=== PATIENT | female | born 1995 | race Caucasian/White ===

== ENCOUNTER 2022-10-28 08:04 | Outpatient (CLI) | payer OTHER, SELFPAY | END 2022-10-28 08:05 | disposition home or self-care (01) | LOC: NFLDREF 13:49 | PROVIDERS: PCP Dermatology; Referring Provider Dermatology; Visit Provider Family Medicine | DX: Z00.00 Encounter for general adult medical examination without abnormal findings (principal); E78.5 Hyperlipidemia, unspecified; E10.9 Type 1 diabetes mellitus without complications; E73.9 Lactose intolerance, unspecified; F41.9 Anxiety disorder, unspecified | CPT/HCPCS: 80053; 80061; 84439; 84443; 84681 ==

== ENCOUNTER 2023-01-17 10:25 | Emergency (ER) | payer OTHER, SELFPAY ==
[2023-01-17] VITALS (8 sets, daily range): BP systolic 99–107; BP diastolic 55–76; PULSE 73–96; RESP 16; TEMP 36; O2SAT 94–100; BMI 21.6
[2023-01-17 11:31] LABS: Appearance Urine Clear (Clear); Bilirubin Urine Negative (Negative); Blood Urine Negative (Negative); Color Urine Yellow (Yellow); Glucose Urine Negative (Negative); Ketones Urine Negative (Negative); Leukocyte Esterase Urine Trace (Negative); Nitrite Urine Negative (Negative); Protein Urine Negative (Negative); Specific Gravity Urine 1.015 (1.000-1.030); Urobilinogen Urine 0.2 (0.2-1.0); pH Urine 6.5 (5.0-8.5)
--- NOTE | 2023-01-17 11:42 | ED.GENADULT ---
HPI - General Adult General Time Seen by Provider: 11:42 Date Seen: 01/17/23 Chief complaint: Flank Pain Stated complaint: maybe kidney stones Time Seen by Provider: 01/17/23 11:32 Source: patient, family, RN notes reviewed and old records reviewed Mode of arrival: ambulatory Limitations: no limitations History of Present Illness HPI narrative: 27-year-old female who comes with right flank and right lower quadrant pain. This started 4 days ago in the low back and now has come around to the front. Pain is constant in the low back, waxes and wanes in the right lower quadrant. Nausea today and general male as and that is what prompted her to come in today. Review of records shows she was seen in urgent care yesterday with CBC and urinalysis done, urinalysis without hematuria or indication of infection and CBC with normal white blood cell count. Denies possibility of . Patient is a type 1 diabetic and says her sugars have been running a little higher since she started feeling poorly. Related Data Home Medications Medication Instructions Recorded Confirmed multivitamin with minerals-folic tab PO 11/01/22 01/16/23 acid 200 mcg chewable tablet (Women's Multivitamin Gummies) Previous Rx's Medication Instructions Recorded Diabetic Test Strips #100 ea 11/01/22 alcohol swabs See Rx Instructions topical 11/01/22 .COMPLEX #200 ea miscellaneous medical supply #1 ea 11/01/22 insulin glargine 100 unit/mL (3 25 unit (0.25 mL) subcut QDAY #15 11/07/22 mL) subcutaneous pen (Lantus mL Solostar U-100 Insulin) lancets 33 gauge #100 ea 11/22/22 pen needle, diabetic 32 gauge x #100 ea 11/22/22 dicyclomine 10 mg capsule 10 mg PO QID PRN abdominal pain 01/17/23 #14 caps ondansetron 4 mg disintegrating 4 mg PO Q6H PRN nausea and 01/17/23 tablet vomiting #20 tabs polyethylene glycol 3350 17 17 g PO DAILY #119 grams 01/17/23 gram/dose oral powder (Miralax) Allergies Allergy/AdvReac Type Severity Reaction Status Date / Time dextromethorphan Allergy Mild Unknown Verified 01/16/23 12:09 [facility] Medical History (Updated 01/17/23 @ 14:30 by Kirk Torres MD) Dyslipidemia ?E78.5 - Hyperlipidemia, unspecified (ICD-10) Migraine with aura ?G43.109 - Migraine with aura, not intractable, without status migrainosus (ICD-10) Surgical History (Updated 11/01/22 @ 12:06 by Madison Lozada MD) No pertinent past surgical history ?Z78.9 - Other specified health status (ICD-10) Family History (Updated 11/07/22 @ 13:32 by Madison Lozada MD) Paternal Grandmother Breast cancer, Onset Age: 60 Lung cancer DM type 1 (diabetes mellitus, type 1) Maternal Grandfather Esophageal cancer Grandmother Diabetes Aunt Diabetes DM type 1 (diabetes mellitus, type 1) Other Prostate cancer Uterine cancer Social History (Updated 11/01/22 @ 12:59 by Madison Lozada MD) 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: , 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, 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 Alcohol ingestion 1-4 drinks/week Does not use illicit drugs Exercises 4 times cardio and weights Smoking Status: Never smoker Second hand tobacco smoke exposure: No How often do you have a drink containing alcohol: never How often do you have six or more drinks on one occasion: Never AUDIT-C Alcohol total score: 0 Non-prescribed substance use: denies use Little interest or pleasure in doing things: not at all Feeling down, depressed, or hopeless: several days service: No Exam Narrative: Exam Narrative: General: Well-developed and well-nourished, no acute distress Head: Atraumatic and normocephalic Eyes: Pupils are equal reactive, extraocular motions intact, conjunctiva clear ENT: External nose and ears are normal, posterior pharynx without erythema or exudate Neck: No midline cervical tenderness, full spontaneous range of motion the neck, trachea midline, no adenopathy Heart: Regular rate and rhythm no murmurs or thrills Lungs: Clear to auscultation bilaterally without wheezes or crackles Abdomen: Soft, mild right CVA tenderness and right lower quadrant tender Musculoskeletal: No tenderness, deformity, or edema Neurologic: Awake, alert, and oriented x3, no gross focal neurologic deficits, cranial nerves intact as tested Psych: Mood and affect are appropriate Skin: No rashes Const: Vital Signs, click to edit/add: Vital Signs - 24 hr 06/16/23 10:45 01/17/23 13:13 01/17/23 13:13 Temperature 96.8 F L Pulse Rate 73 Pulse Rate [Pulse Oximeter] 96 73 Respiratory Rate 16 16 Blood Pressure Blood Pressure [Ri ght Upper Arm] 101/67 107/76 Pulse Oximetry 100 100 100 Oxygen Delivery Me thod Room Air Room Air 01/17/23 13:30 01/17/23 13:31 01/17/23 13:31 Temperature Pulse Rate 81 81 81 Pulse Rate [Pulse Oximeter] Respiratory Rate Blood Pressure 106/60 106/60 Blood Pressure [Ri ght Upper Arm] Pulse Oximetry 97 99 99 Oxygen Delivery Me thod 01/17/23 14:00 01/17/23 14:01 01/17/23 14:30 Temperature Pulse Rate 85 85 78 Pulse Rate [Pulse Oximeter] Respiratory Rate Blood Pressure 107/62 Blood Pressure [Ri ght Upper Arm] Pulse Oximetry 94 99 100 Oxygen Delivery Me thod 01/17/23 14:31 Temperature Pulse Rate 84 Pulse Rate [Pulse Oximeter] Respiratory Rate Blood Pressure 99/55 L Blood Pressure [Ri ght Upper Arm] Pulse Oximetry 98 Oxygen Delivery Me thod Course Course Hospital Course: Patient seen examined, prior records are reviewed. Patient presents today with right flank pain right lower quadrant pain going on for about the last 5 days. On exam here, right CVA tenderness and right lower quadrant tenderness. Symptoms could be from kidney stone, also consider acute appendicitis or ovarian pathology, mesenteric adenitis also possible. Labs, CT scan, fluids, Toradol, and Zofran are ordered. Reevaluation(s) Time of Reevaluation #1: 14:06 Reevaluation #1: Labs independently interpreted by me demonstrate normal CBC, reassuring basic panel, urinalysis not consistent with infection. CT scan independently interpreted by me demonstrates large volume of stool and very full bladder but no acute findings otherwise, no acute appendicitis, no ovarian cyst noted, no nephrolithiasis or ureterolithiasis. Time of Reevaluation #2: 14:26 Reevaluation #2: Reviewed radiology report of CT scan which shows moderate stool and some enteritis changes. Patient is stable for discharge with medicine for nausea and pain, also was started on MiraLax and a stool softener. Vital Signs Vital signs: Initial Vital Signs Temperature 96.8 F L 01/17/23 10:45 Temperature Source Temporal Artery Scan 01/17/23 10:45 Pulse Rate 96 01/17/23 10:45 Pulse Rhythm Regular 01/17/23 10:45 Respiratory Rate 16 01/17/23 10:45 Blood Pressure 101/67 01/17/23 10:45 Blood Pressure Mean 78 01/17/23 10:45 Pulse Oximetry 100 01/17/23 10:45 Oxygen Delivery Method Room Air 01/17/23 10:45 Vital Signs Temperature 96.8 F L 01/17/23 10:45 Pulse Rate 96 01/17/23 10:45 Respiratory Rate 16 01/17/23 10:45 Blood Pressure 101/67 01/17/23 10:45 Pulse Oximetry 100 01/17/23 10:45 Oxygen Delivery Method Room Air 01/17/23 10:45 Temperature 96.8 F L 01/17/23 10:45 Pulse Rate 84 01/17/23 14:31 Respiratory Rate 16 01/17/23 13:13 Blood Pressure 99/55 L 01/17/23 14:31 Pulse Oximetry 98 01/17/23 14:31 Oxygen Delivery Method Room Air 01/17/23 13:13 Medical Decision Making Lab Data Labs: Lab Results 01/17/23 01/17/23 01/17/23 Range/Units 11:20 12:13 12:20 WBC 9.48 (4.50-11.00) K/uL RBC 4.31 (4.00-5.20) m/uL Hgb 13.0 (12.0-16.0) gm/dL Hct 39.5 (33.0-51.0) % MCV 92 (80-100) fL MCH 30 (26-34) pg MCHC 33 (32-36) gm/dL RDW Coeff of Ortega 11.9 (11.5-15.5) % Plt Count 272 (140-440) K/uL Neut % (Auto) 53.0 (42.0-72.0) % Lymph % (Auto) 15.7 L (20-44) % [place] % (Auto) 4.9 (0.0-11.0) % Eos % (Auto) 26.1 H (0.0-7.0) % Baso % (Auto) 0.2 (0.0-3.0) % Neut # (Auto) 5.03 (1.7-7.0) K/uL Lymph # (Auto) 1.50 (0.90-2.90) K/uL [place] # (Auto) 0.50 (0.00-0.90) K/UL Eos # (Auto) 2.50 H (0.00-0.50) K/uL Baso # (Auto) 0.02 (0.00-0.30) K/uL Sodium 133 L (135-149) mmol/L Potassium 4.3 (3.6-5.1) mmol/L Chloride 103 (96-114) mmol/L Carbon Dioxide 26 (20-32) mmol/L BUN 12 (5-24) mg/dL Creatinine 0.6 (0.5-1.5) mg/dL Estimated Creat Clear 136.96 Estimated GFR 126 ml/min Glucose 182 H (60-115) mg/dL Calcium 9.0 (8.4-10.6) mg/dL Urine Color Yellow (Yellow) Urine Appearance Clear (Clear) Urine pH 6.5 (5.0-8.5) Ur Specific [place] 1.015 (1.000-1.030) Urine Protein Negative (Negative) Urine Glucose (UA) Negative (Negative) Urine Ketones Negative (Negative) Urine Blood Negative (Negative) Urine Nitrite Negative (Negative) Urine Bilirubin Negative (Negative) Urine Urobilinogen 0.2 (0.2-1.0) Ur Leukocyte Esterase Trace A (Negative) Urine RBC 0-2 (0-2) Urine WBC 0-2 (0-5) Ur Squamous Epith Cells Few (None-Few) Urine Bacteria Few A (None) Urine HCG, Qual Negative (Negative) Lab Acknowledgement Test Added Discharge Plan Discharge Clinical Impression: DM type 1 (diabetes mellitus, type 1), Enteritis Patient Disposition: Home w/ Parent or Adult Condition: Stable Instructions: Enteritis (ED) Additional Instructions: Liquid diet for 24 hours, then diet as tolerated.. Take MiraLax and stool softener as prescribed. Activity Level: No Restrictions Discharge Diet: Regular Prescriptions: New polyethylene glycol 3350 [Miralax] 17 gram/dose powder 17 g PO DAILY Qty: 119 0RF dicyclomine 10 mg capsule 10 mg PO QID PRN (Reason: abdominal pain) Qty: 14 0RF ondansetron 4 mg tablet,disintegrating 4 mg PO Q6H PRN (Reason: nausea and vomiting) Qty: 20 0RF No Action Women's Multivitamin Gummies 200 mcg tablet,chewable PO insulin glargine [Lantus Solostar U-100 Insulin] 100 unit/mL (3 mL) insulin pen 25 unit subcut QDAY Qty: 15 3RF (DME) miscellaneous medical supply Misc See Rx Instructions .Route Qty: 1 0RF Rx Instructions: As directed alcohol swabs Pads, Medicated See Rx Instructions topical .COMPLEX Qty: 200 11RF Rx Instructions: For topical use prior to injections. (DME) Diabetic Test Strips Misc See Rx Instructions .Route Qty: 100 11RF Rx Instructions: four times a day (DME) pen needle, diabetic 32 gauge x 5/32 needle See Rx Instructions .Route Qty: 100 10RF Rx Instructions: As directed (DME) lancets 33 gauge misc See Rx Instructions .Route Qty: 100 0RF Rx Instructions: As directed Follow Up/Referrals: Carin Lopez MD, FAAD [Primary Care Provider] - Stand Alone Forms: [facility] Info Inst[facility]
--- NOTE | 2023-01-17 11:44 | CRLHL7_ITS ---
For Patients: As a result of the Century Cures Act, medical imaging exams and procedure reports are released immediately into your electronic medical record. You may view this report before your referring provider. If you have questions, please contact your health care provider. Indication: Right flank and right lower quadrant pain Technique: Volumetric multidetector CT images of the abdomen and pelvis were obtained after the administration of intravenous contrast. 68 cc Isovue 370 low osmolar intravenous contrast Comparison: None available. Findings: The lung bases are clear. The liver is normal in attenuation without intrahepatic biliary ductal dilatation. The portal vein is patent. The gallbladder is unremarkable without evidence of radiopaque calculus. There is no significant common biliary ductal dilatation or abrupt cut off. The spleen is normal in enhancement and size. There is mild thickening of the gastric antrum and gastric rugal folds. The pancreas is normal in enhancement without significant atrophy. The adrenal glands are unremarkable. The kidneys demonstrate preserved corticomedullary differentiation without evidence of obstructive uropathy. There is moderate to severe stool seen throughout the colon with minimal fluid-filled central small bowel which may represent mild enteritis change. The appendix is unremarkable. There is no significant mesenteric, retroperitoneal, or pelvic sidewall lymph nodes. The aorta is nonaneurysmal. There is no significant atherosclerotic disease appreciated. The solid pelvic viscera are grossly unremarkable. There is no free fluid or free air. The anterior abdominal wall is intact without significant hernias. The lumbar vertebral body heights are grossly maintained with mild straightening of the normal lumbar lordosis. There is no significant spondylolisthesis or displaced fracture. Impression: Normal appendix. No evidence of distal obstructive radiopaque calculus. Moderate to severe stool seen throughout the colon with nonspecific fluid seen within loops of central small bowel which may represent enteritis changes. Please note that all CT scans at this facility use dose modulation, iterative reconstruction, and/or weight-based dosing when appropriate to reduce radiation dose to as low as reasonably achievable. Dictated by Arcenio Chacko MD @ 01/17/2023 2:20:38 PM (Electronically Signed)
[2023-01-17 11:50] LABS: Bacteria Urine Few; RBC Urine 0-2 (0-2); Squamous Epithelial Cell Urine Few (None-Few); WBC Urine 0-2 (0-5)
[2023-01-17] MEDS: KETOROLAC 15 MG/ML inj IVP (12:24)
[2023-01-17] MEDS: 0.9 % SODIUM CHLORIDE 1000 ml 1,000 ML IV (12:25)
[2023-01-17] MEDS: ONDANSETRON 2 MG/ML inj 4 MG IVP (12:25)
[2023-01-17 12:32] LABS: Ur HCG Qualitative* Negative (Negative)
[2023-01-17 12:54] LABS: Basophils Absolute Auto 0.02 K/uL (0.00-0.30); Basophils Percent Auto 0.2 % (0.0-3.0); Eosinophils Percent Auto 26.1 % (0.0-7.0); Hematocrit 39.5 % (33.0-51.0); Immature Granulocytes Abs Auto 0.01 K/uL (0.00-0.30); Immature Granulocytes Pct Auto 0.1 %; Lymphocytes Percent Auto 15.7 % (20-44); Mean Corpuscular HGB Conc 33 gm/dL (32-36); Mean Corpuscular Hemoglobin 30 pg (26-34); Mean Corpuscular Volume 92 fL (80-100); Monocytes Percent Auto 4.9 % (0.0-11.0); Neutrophils Absolute Auto 5.03 K/uL (1.7-7.0); Platelet Count* 272 K/uL (140-440); RDW Coefficient of Variation % 11.9 % (11.5-15.5); Red Blood Count 4.31 m/uL (4.00-5.20); Slide Review Reflex No; White Blood Count* 9.48 K/uL (4.50-11.00)
[2023-01-17] MEDS: HYDROmorphone 0.5 mg/0.5 ml inj IVP (13:04)
[2023-01-17 13:13] LABS: Chloride* 103 mmol/L (96-114); Sodium* 133 mmol/L (135-149)
[2023-01-17 13:14] LABS: Potassium* 4.3 mmol/L (3.6-5.1)
[2023-01-17 13:16] LABS: Carbon Dioxide* 26 mmol/L (20-32); Creatinine* 0.6 mg/dL (0.5-1.5); Est. Creatinine Clearance* 136.96; Estimated Glomerular Filt Rate 126 ml/min
[2023-01-17 13:17] LABS: Blood Urea Nitrogen* 12 mg/dL (5-24); Glucose* 182 mg/dL (60-115)
== END 2023-01-17 14:53 | disposition home or self-care (01) ==
PROVIDERS: Emergency Provider Family Medicine; PCP Dermatology
DX: K52.9 Noninfective gastroenteritis and colitis, unspecified (principal); E10.9 Type 1 diabetes mellitus without complications
CPT/HCPCS: 36415; 74177; 80048; 81001; 81025; 85025; 87086; 96374; 96375; 99284; 99285; J1170; J1885; J2405; J7030; Q9967

== ENCOUNTER 2023-06-17 11:14 | Outpatient (CLI) | payer OTHER, SELFPAY ==
--- NOTE | 2023-06-17 11:00 | CRLHL7_ITS ---
For Patients: As a result of the Century Cures Act, medical imaging exams and procedure reports are released immediately into your electronic medical record. You may view this report before your referring provider. If you have questions, please contact your health care provider. INDICATION: BLEEDING IN 1ST TRIMESTER, RLQ PAIN, R/O ECTOPIC COMPARISON: None. TECHNIQUE: Real-time mckenna-scale imaging of the pelvis was performed. FINDINGS: Transvaginal sonogram of the pelvis performed. There is a small fluid collection within the endometrium that may represent a small gestational sac measuring 3 millimeters. This would correspond to a 5 week 0 day gestation. No pole or yolk sac. There is a cystic structure within the right ovary measuring 2.2 x 1.9 x 2.1 cm. The right ovary measures 3.1 x 2.3 x 2.9 cm and the left ovary measures 3.3 x 1.6 x 2.5 cm. No pelvic free fluid. IMPRESSION: Small intrauterine gestational sac measuring 5 weeks 0 days without pole. Corpus luteal cyst right ovary measuring 2.2 cm. Dictated by Manjeet Madrid MD @ 06/17/2023 12:57:04 PM (Electronically Signed)
== END 2023-06-17 11:15 | disposition home or self-care (01) ==
PROVIDERS: PCP Family Medicine; Visit Provider Family Medicine
DX: O20.9 Hemorrhage in early pregnancy, unspecified (principal)
CPT/HCPCS: 76817; 80053; 83516; 84443; 84702; 84703; 86140; 86364; 86900; 86901

== ENCOUNTER 2023-06-19 14:08 | Outpatient (CLI) | payer OTHER, SELFPAY | END 2023-06-19 14:09 | disposition home or self-care (01) | LOC: NFLDREF 06-26 01:41 | PROVIDERS: PCP Family Medicine; Referring Provider Family Medicine; Visit Provider Family Medicine | DX: O03.9 Complete or unspecified spontaneous abortion without complication (principal); O20.9 Hemorrhage in early pregnancy, unspecified | CPT/HCPCS: 84702 ==

== ENCOUNTER 2023-06-25 13:35 | Outpatient (CLI) | payer OTHER, SELFPAY | END 2023-06-25 13:36 | disposition home or self-care (01) | LOC: NFLDREF 06-26 11:31 | PROVIDERS: PCP Family Medicine; Referring Provider Family Medicine; Visit Provider Advanced Practice Midwife | DX: O03.9 Complete or unspecified spontaneous abortion without complication (principal) | CPT/HCPCS: 84702 ==

== ENCOUNTER 2023-09-09 15:51 | Outpatient (CLI) | payer OTHER, SELFPAY ==
--- NOTE | 2023-09-09 16:00 | CRLHL7_ITS ---
For Patients: As a result of the Century Cures Act, medical imaging exams and procedure reports are released immediately into your electronic medical record. You may view this report before your referring provider. If you have questions, please contact your health care provider. INDICATION: First trimester scan, establish dates. COMPARISON: None. TECHNIQUE: Real-time mckenna-scale imaging of the pelvis was performed. FINDINGS: Sonographic imaging demonstrates a single living intrauterine gestation. The embryo demonstrates a regular cardiac rate measuring 176 beats per minute. The embryo`s crown-rump length measurement of 1.6 cm corresponds to a gestational age of 8 weeks 0 days with a sonographic due date of 04/20/2024. There is a normal-appearing yolk sac. There are no gross abnormalities noted within the embryo at this early state of development. The gestational sac has a normal appearance. There is no evidence of a perigestational hemorrhage. The amount of fluid within the sac appears appropriate for gestational age. The cervix is closed. The myometrium appears normal. The ovaries are of normal size. Corpus luteal cyst left ovary. There are no suspicious fluid collections noted in the cul-de-sac. IMPRESSION: Normal first trimester OB ultrasound exam. Gestational age calculated at 8 weeks 0 days with a sonographic due date of 04/20/2024. Dictated by Manjeet Madrid MD @ 09/11/2023 10:03:01 AM (Electronically Signed)
== END 2023-09-09 15:52 | disposition home or self-care (01) ==
LOC: US 15:51
PROVIDERS: PCP Family Medicine; Visit Provider Advanced Practice Midwife
DX: Z34.91 Encounter for supervision of normal pregnancy, unspecified, first trimester (principal); Z3A.08 8 weeks gestation of pregnancy
CPT/HCPCS: 76817; 82565; 82570; 84156; 84450; 84460; 84520; 84550; 86592; 86703; 86704; 86706; 86762; 86787; 86803; 86850; 86900; 86901; 87086; 87340; 87491; 87591

== ENCOUNTER 2023-09-09 17:13 | Outpatient (CLI) | payer OTHER, SELFPAY ==
[2023-09-09 21:50] LABS: Chlamydia DNA Amplified* Not Detected (No Detected); GC DNA Amplified* Not Detected (No Detected)
== END 2023-09-09 17:14 | disposition home or self-care (01) ==
PROVIDERS: PCP Family Medicine; Visit Provider Physician Assistant
DX: Z34.81 Encounter for supervision of other normal pregnancy, first trimester (principal)
CPT/HCPCS: 82565; 82570; 84156; 84450; 84460; 84520; 84550; 86592; 86703; 86704; 86706; 86762; 86787; 86803; 86850; 86900; 86901; 87086; 87340; 87491; 87591

== ENCOUNTER 2023-09-22 09:20 | Outpatient (CLI) | payer OTHER, SELFPAY | END 2023-09-22 09:21 | disposition home or self-care (01) | LOC: NFLDREF 16:20 | PROVIDERS: PCP Family Medicine; Referring Provider Family Medicine; Visit Provider Physician Assistant | DX: Z34.91 Encounter for supervision of normal pregnancy, unspecified, first trimester (principal) | CPT/HCPCS: 82570; 84156 ==

== ENCOUNTER 2023-10-06 15:10 | Outpatient (CLI) | payer OTHER, SELFPAY | END 2023-10-06 15:11 | disposition home or self-care (01) | LOC: NFLDREF 15:11 | PROVIDERS: PCP Family Medicine; Visit Provider Obstetrics & Gynecology | DX: O24.011 Pre-existing type 1 diabetes mellitus, in pregnancy, first trimester (principal); R74.01 Elevation of levels of liver transaminase levels; Z3A.11 11 weeks gestation of pregnancy | CPT/HCPCS: 80076 ==

== ENCOUNTER 2024-01-26 13:59 | Outpatient (CLI) | payer OTHER, SELFPAY ==
--- NOTE | 2024-01-26 14:00 | CRLHL7_ITS ---
For Patients: As a result of the Century Cures Act, medical imaging exams and procedure reports are released immediately into your electronic medical record. You may view this report before your referring provider. If you have questions, please contact your health care provider. OBSTETRICAL ULTRASOUND - BIOPHYSICAL PROFILE, 01/26/2024 INDICATION: Preexisting type 1 diabetes. EMMA by LMP: 04/20/2024 Gestational age: 27 weeks 6 days COMPARISON: 12/08/2023 TECHNIQUE: Transabdominal obstetrical ultrasound. FINDINGS: Gestation: Single Cervix: Not visualized positioning: Vertex Amniotic fluid: 7.7 cm SDP BIOPHYSICAL PROFILE: Total score: 8 Gross body movements: 2 tone: 2 Respiratory activity: 2 Amniotic fluid SDP: 2 Placenta position: Posterior heart rate: 147 bpm BIOMETRY: BPD: 7.2 cm, 29 weeks 0 days, 74% HC: 26.4 cm, 28 weeks 5 days, 46% AC: 25.9 cm, 30 weeks 1 day, 94% FL: 5.3 cm, 28 weeks 2 days, 49% FL/AC Ratio: 20.59% HC/AC ratio: 1.02 EFW: 1371 grams, 3 lbs. 0 oz. age by this ultrasound: 29 weeks 0 days EMMA by this US: 04/12/2024 Percentile by EMMA: 88% IMPRESSION: 1) Estimated weight is at the 88th percentile. 2) Abdominal circumference is at the 94th percentile. EULALIA CERVANTES M.D. Body/Diagnostic Radiologist [email or web address] Transcribed: 1:[address]/Dictated by: Eulalia Cervantes MD @ 01/27/2024 1:06:00 PM (Electronically Signed)
== END 2024-01-26 14:00 | disposition home or self-care (01) ==
LOC: US 14:00
PROVIDERS: PCP Family Medicine; Visit Provider Obstetrics & Gynecology
DX: Z34.92 Encounter for supervision of normal pregnancy, unspecified, second trimester (principal); Z3A.27 27 weeks gestation of pregnancy
CPT/HCPCS: 76816; 76819; 86592

== ENCOUNTER 2024-02-23 13:52 | Outpatient (CLI) | payer OTHER, SELFPAY ==
--- NOTE | 2024-02-23 14:00 | CRLHL7_ITS ---
For Patients: As a result of the Century Cures Act, medical imaging exams and procedure reports are released immediately into your electronic medical record. You may view this report before your referring provider. If you have questions, please contact your health care provider. INDICATION: check growth pre-existing type 1 diabetes mellitus TECHNIQUE: Real time mckenna scale imaging of the fetus was performed. COMPARISON: 01/26/2024 FINDINGS: Sonographic imaging demonstrates a single living intrauterine gestation. Fetus demonstrates a regular cardiac rate of 149 beats per minute. Fetus has a vertex position. The placenta lies posteriorly. Amniotic fluid volume appears normal and there is a single deepest pocket of 6.0 cm. The estimated weight is 2115gm which lies at the 78th %. On the prior OB ultrasound dated 01/26/2024 the estimated weight was at the 88th percentile. BPD 85th percentile. HC 55th percentile. AC 83rd percentile. FL is 63rd percentile The fetus was active and demonstrated normal breathing movements. There was normal flexion and extension of the trunk and extremities. IMPRESSION: Normal biophysical profile score 8/8. Sonographic gestational age 33 weeks 1 day and sonographic due date 04/11/2024. Sonographic age 9 days ahead of the clinical age. Estimated weight 78th percentile. Abdominal circumference 83rd percentile. Dictated by Manjeet Madrid MD @ 02/23/2024 3:50:35 PM (Electronically Signed)
== END 2024-02-23 13:53 | disposition home or self-care (01) ==
LOC: US 13:53
PROVIDERS: PCP Family Medicine; Visit Provider Obstetrics & Gynecology
DX: O24.013 Pre-existing type 1 diabetes mellitus, in pregnancy, third trimester (principal); Z3A.33 33 weeks gestation of pregnancy
CPT/HCPCS: 76816; 76819

== ENCOUNTER 2024-03-01 14:01 | Outpatient (CLI) | payer OTHER, SELFPAY ==
--- NOTE | 2024-03-01 14:00 | CRLHL7_ITS ---
For Patients: As a result of the Century Cures Act, medical imaging exams and procedure reports are released immediately into your electronic medical record. You may view this report before your referring provider. If you have questions, please contact your health care provider. INDICATION: Type 1 diabetes COMPARISON: 02/23/2024 TECHNIQUE: Real time mckenna scale imaging of the fetus was performed. Without non-stress testing. FINDINGS: Sonographic imaging demonstrates a single living intrauterine gestation. Fetus demonstrates a regular cardiac rate of 139 beats per minute. Fetus has a vertex position. The amniotic fluid volume appears normal and there is a single deepest pocket measurement of 4.4 cm. The fetus was active and demonstrated normal breathing movements. There was normal flexion and extension of the trunk and extremities. Incidental right renal pelvis measures 3 millimeters, considered normal at this gestational age. IMPRESSION: Normal biophysical profile score of 8 out of 8. Dictated by Manjeet Madrid MD @ 03/02/2024 8:26:18 AM (Electronically Signed)
== END 2024-03-01 14:02 | disposition home or self-care (01) ==
LOC: US 14:01
PROVIDERS: PCP Family Medicine; Visit Provider Obstetrics & Gynecology
DX: O24.011 Pre-existing type 1 diabetes mellitus, in pregnancy, first trimester (principal)
CPT/HCPCS: 76819

== ENCOUNTER 2024-03-08 09:15 | Outpatient (CLI) | payer OTHER, SELFPAY ==
--- NOTE | 2024-03-08 09:15 | CRLHL7_ITS ---
For Patients: As a result of the Century Cures Act, medical imaging exams and procedure reports are released immediately into your electronic medical record. You may view this report before your referring provider. If you have questions, please contact your health care provider. INDICATION: Type 1 diabetes COMPARISON: none TECHNIQUE: Real time mckenna scale imaging of the fetus was performed. Without non-stress testing. FINDINGS: Sonographic imaging demonstrates a single living intrauterine gestation. Fetus demonstrates a regular cardiac rate of 137 beats per minute. Fetus has a vertex position. The amniotic fluid volume appears normal and there is a single deepest pocket measurement of 6.1 cm. The fetus was active and demonstrated normal breathing movements. There was normal flexion and extension of the trunk and extremities. IMPRESSION: Normal biophysical profile score of 8 out of 8. Dictated by Manjeet Madrid MD @ 03/08/2024 10:18:56 AM (Electronically Signed)
== END 2024-03-08 09:16 | disposition home or self-care (01) ==
LOC: US 09:15
PROVIDERS: PCP Family Medicine; Visit Provider Obstetrics & Gynecology
DX: O24.019 Pre-existing type 1 diabetes mellitus, in pregnancy, unspecified trimester (principal)
CPT/HCPCS: 76819

== ENCOUNTER 2024-03-15 14:01 | Outpatient (CLI) | payer OTHER, SELFPAY ==
--- NOTE | 2024-03-15 14:00 | CRLHL7_ITS ---
For Patients: As a result of the Century Cures Act, medical imaging exams and procedure reports are released immediately into your electronic medical record. You may view this report before your referring provider. If you have questions, please contact your health care provider. INDICATION: pre-existing type 1 diabetes mellitus COMPARISON: none TECHNIQUE: Real time mckenna scale imaging of the fetus was performed. Without non-stress testing. FINDINGS: Sonographic imaging demonstrates a single living intrauterine gestation. Fetus demonstrates a regular cardiac rate of 157 beats per minute. Fetus has a vertex position. The amniotic fluid volume appears normal and there is a single deepest pocket measurement of 6.9 cm. The fetus was active and demonstrated normal breathing movements. There was normal flexion and extension of the trunk and extremities. IMPRESSION: Normal biophysical profile score of 8 out of 8. Dictated by Manjeet Madrid MD @ 03/16/2024 9:24:16 AM (Electronically Signed)
== END 2024-03-15 14:02 | disposition home or self-care (01) ==
LOC: US 14:01
PROVIDERS: PCP Family Medicine; Visit Provider Obstetrics & Gynecology
DX: O24.011 Pre-existing type 1 diabetes mellitus, in pregnancy, first trimester (principal)
CPT/HCPCS: 76819

== ENCOUNTER 2024-03-22 14:03 | Outpatient (CLI) | payer OTHER, SELFPAY ==
--- NOTE | 2024-03-22 14:00 | CRLHL7_ITS ---
For Patients: As a result of the Century Cures Act, medical imaging exams and procedure reports are released immediately into your electronic medical record. You may view this report before your referring provider. If you have questions, please contact your health care provider. INDICATION: TYPE 1 DM TECHNIQUE: Real time mckenna scale imaging of the fetus was performed. COMPARISON: 03/15/2024 FINDINGS: Sonographic imaging demonstrates a single living intrauterine gestation. Fetus demonstrates a regular cardiac rate of 135 beats per minute. Fetus has a vertex position. The placenta lies posterior. Amniotic fluid volume appears normal and there is a single deepest pocket of 6.6 cm. The estimated weight is 3431gm which lies at the 97th %. On the prior OB ultrasound dated 01/26/2024 the estimated weight was at the 88th percentile. BPD 57th percentile. HC 49th percentile. AC greater than 97th percentile. FL 68th percentile. Right renal pelvis measures 5.5 millimeters, considered normal at this gestational age. The fetus was active and demonstrated normal breathing movements. There was normal flexion and extension of the trunk and extremities. IMPRESSION: Normal biophysical profile score 8/8. Sonographic gestational age 37 weeks 2 days and sonographic due date 04/10/2024. Sonographic age 10 days ahead of the clinical age. Estimated weight 97th percentile. Abdominal circumference greater than 97th percentile. Dictated by Manjeet Madrid MD @ 03/23/2024 10:14:30 AM (Electronically Signed)
== END 2024-03-22 14:04 | disposition home or self-care (01) ==
LOC: US 14:03
PROVIDERS: PCP Family Medicine; Visit Provider Obstetrics & Gynecology
DX: O24.011 Pre-existing type 1 diabetes mellitus, in pregnancy, first trimester (principal); Z3A.37 37 weeks gestation of pregnancy
CPT/HCPCS: 76816; 76819; 87081; 87653

== ENCOUNTER 2024-03-29 14:16 | Outpatient (CLI) | payer OTHER, SELFPAY ==
--- NOTE | 2024-03-29 14:00 | CRLHL7_ITS ---
For Patients: As a result of the Century Cures Act, medical imaging exams and procedure reports are released immediately into your electronic medical record. You may view this report before your referring provider. If you have questions, please contact your health care provider. INDICATION: Type 1 diabetes COMPARISON: 03/22/2024 TECHNIQUE: Real time mckenna scale imaging of the fetus was performed. Without non-stress testing. FINDINGS: Sonographic imaging demonstrates a single living intrauterine gestation. Fetus demonstrates a regular cardiac rate of 133 beats per minute. Fetus has a vertex position. The amniotic fluid volume single deepest pocket measurement of 8.6 cm. NICOLAS 20.3 cm. The fetus was active and demonstrated normal breathing movements. There was normal flexion and extension of the trunk and extremities. IMPRESSION: Normal biophysical profile score of 8 out of 8. SDP 8.6 cm. NICOLAS 20.3 cm. Dictated by Manjeet Madrid MD @ 03/30/2024 6:58:18 AM (Electronically Signed)
== END 2024-03-29 14:17 | disposition home or self-care (01) ==
LOC: US 14:17
PROVIDERS: PCP Family Medicine; Visit Provider Obstetrics & Gynecology
DX: O24.011 Pre-existing type 1 diabetes mellitus, in pregnancy, first trimester (principal)
CPT/HCPCS: 76819

== ENCOUNTER 2024-04-06 14:01 | Outpatient (CLI) | payer OTHER, SELFPAY ==
--- NOTE | 2024-04-06 14:00 | CRLHL7_ITS ---
For Patients: As a result of the Century Cures Act, medical imaging exams and procedure reports are released immediately into your electronic medical record. You may view this report before your referring provider. If you have questions, please contact your health care provider. INDICATION: pre-existing type 1 diabetes COMPARISON: 03/29/2024 TECHNIQUE: Real time mckenna scale imaging of the fetus was performed. Without non-stress testing. FINDINGS: Sonographic imaging demonstrates a single living intrauterine gestation. Fetus demonstrates a regular cardiac rate of 130 beats per minute. Fetus has a vertex position. The amniotic fluid volume appears normal and there is a single deepest pocket measurement of 6.7 cm. The fetus was active and demonstrated normal breathing movements. There was normal flexion and extension of the trunk and extremities. IMPRESSION: Normal biophysical profile score of 8 out of 8. Dictated by Manjeet Madrid MD @ 04/06/2024 3:46:17 PM (Electronically Signed)
== END 2024-04-06 14:02 | disposition home or self-care (01) ==
LOC: US 14:02
PROVIDERS: PCP Family Medicine; Visit Provider Obstetrics & Gynecology
DX: O24.011 Pre-existing type 1 diabetes mellitus, in pregnancy, first trimester (principal)
CPT/HCPCS: 76819

== ENCOUNTER 2024-04-12 08:02 | Outpatient (CLI) | payer OTHER, SELFPAY ==
--- NOTE | 2024-04-12 08:00 | CRLHL7_ITS ---
For Patients: As a result of the Century Cures Act, medical imaging exams and procedure reports are released immediately into your electronic medical record. You may view this report before your referring provider. If you have questions, please contact your health care provider. INDICATION: Third trimester scan, evaluate growth. Diabetes. COMPARISON: 04/06/2024 TECHNIQUE: Real time mckenna scale imaging of the fetus was performed. FINDINGS: Sonographic imaging demonstrates a single living intrauterine gestation. Fetus demonstrates a regular cardiac rate of 137 beats per minute. Fetus has a vertex position. The placenta lies posteriorly. Amniotic fluid volume appears normal and there is a single deepest vertical pocket: 5.2 cm. The estimated weight is 3825gm which lies at the 83rd %. On the prior OB ultrasound exam dated 03/22/2024 the estimated weight was at the 97th%. BPD 68th percentile. HC 22nd percentile. AC 92nd. FL 83rd percentile. The HC/AC ratio measures 0.93 range (0.87-1.06). IMPRESSION: Sonographic gestational age 39 weeks 1 day and sonographic due date 04/18/2024. Good correlation with dates. Normal interval growth. Estimated weight 83rd percentile. Abdominal circumference 92nd percentile. Dictated by Manjeet Madrid MD @ 04/12/2024 10:29:43 AM (Electronically Signed)
== END 2024-04-12 08:03 | disposition home or self-care (01) ==
LOC: US 08:02
PROVIDERS: PCP Family Medicine; Visit Provider Obstetrics & Gynecology
DX: O24.013 Pre-existing type 1 diabetes mellitus, in pregnancy, third trimester (principal); Z3A.38 38 weeks gestation of pregnancy
CPT/HCPCS: 76816

== ENCOUNTER 2024-04-12 16:03 | Inpatient (IN) | payer OTHER, SELFPAY ==
[2024-04-12 16:45] VITALS: BP 121/72; PULSE 82
[2024-04-12 16:46] VITALS: TEMP 36.8
[2024-04-12 16:47] VITALS: BMI 27.1
--- NOTE | 2024-04-12 17:26 | P.LDBA_ITS ---
Subjective History of Present Illness Time Seen by Provider: 17:15 Date Seen: 04/12/24 Narrative: Patient is being admitted to Labor and Delivery for induction of labor with cervical ripening secondary to type 1 DM. She is a 28 year old at 38 6/7 weeks gestation. Her full history and physical was dictated by Dr. Clemente on 03/29/2024. Please see this for details. Specific Issues/Plans Maternity T21: negative Spouse: Lenny. Baby bAena Joseph # Diabetes type 1, Novolog sliding scale, Lantus 14 U. 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 Normal anatomy, posterior placenta, normal EFW. echocardiogram 12/15/2023: normal, see scanned report Baseline pre E labs: normal with the exception of mild AST elevation, 41. pr/cr ratio: .20. AST normal upon repeat 10/05 24 hour urine for protein: 266 mg TSH 2.01 on 09/09/2023 Growth ultrasound Q 4 weeks starting at 28 weeks Twice weekly testing with BPP alternating with NST starting at 32 weeks, sooner if poor control Induction of labor at 39 weeks or sooner in the setting of poor control ASA 81 mg Most recent dosing (03/29): Lantus 19 u QAM, Novolog 6AM 1u-10 carbs, 11am 1 u - 6.6 carbs, 5p 1 u - 6.2 carbs, 10p- 1 u - 14 carbs After delivery: decrease Lantus to 9 u QAM, change Novolog to 1:15 # Suspected macrosomia. Repeat US For EFW on 04/12, with clinic visit to follow to discuss results # History of recurrent loss x 2 # Migraines with aura, none this # Varicella nonimmune Vaccination Ultrasounds: 01/26/2024 = 27 weeks, 6 days: Cephalic, SDP 7.7, BPP 8/8, EFW 88%, AC 94%, BPD 74%, HC 46%, FL 49% 02/23/2024 =31 6/7 weeks: cephalic, normal fluid, EFW 78%, AC 83%. 03/22/2024 =35.6 weeks: EFW 96.7 percentile, AC greater than 97th percentile. SDP 6.6 cm. Cephalic 04/12/2024 = cephalic, SDP 5.2 cm, EFW 3825 g = 8 lbs 7 oz, BPD 68%, HC 22%, AC 92%, FL 83%. Tdap: 02/12/2024 Mental Health: 02/23/24 Hgb 03/08/24: 12.4 GBS negative 03/22 OB - Problem Based A/P Additional Plan (1) Type 1 diabetes mellitus during : Status: Acute Delivery/Labor/Induction Plan Plan: induction Induction method: Intracervical balloon catheter OB Exam Physical Exam Vital signs: Temp Pulse BP 98.2 F 82 121/72 04/12/24 16:46 04/12/24 16:45 04/12/24 16:45 Detailed Labor and Delivery Exam Patient Gravid: Yes Dilation (cm): 1 Effacement (%): 50 Cervix position: posterior Consistency: medium Contraction Frequency: occasional Tachysystole: No Contraction intensity: Mild Fetus (Single) Station: -3 Amniotic Membrane Status: intact Heart Rate Baseline: 125 Monitor Accelerations: Present Monitor Decelerations: None Care Home Variability: Moderate (6-25)
[2024-04-12] MEDS: INSULIN ASPART 100 UNIT/ML SUBCUT ×2 (20:15→20:16)
[2024-04-12 20:31] LABS: Basophils Percent Auto 0.2 % (0.0-3.0); Eosinophils Percent Auto 2.6 % (0.0-7.0); Hemoglobin* 12.6 gm/dL (12.0-16.0); Immature Granulocytes Pct Auto 0.3 %; Mean Corpuscular HGB Conc 34 gm/dL (32-36); Mean Corpuscular Hemoglobin 31 pg (26-34); Mean Corpuscular Volume 91 fL (80-100); Monocytes Percent Auto 6.9 % (0.0-11.0); Platelet Count* 190 K/uL (140-440); RDW Coefficient of Variation % 13.5 % (11.5-15.5); Red Blood Count 4.06 m/uL (4.00-5.20); White Blood Count* 11.79 K/uL (4.50-11.00)
[2024-04-12 20:37] LABS: Slide Review Reflex No
[2024-04-12] MEDS: OXYTOCIN 30 unit/500 ML in NS 30 UNIT/500 ML BAG IVPB (20:54)
[2024-04-12] MEDS: LACTATED RINGERS 1000 ML 1,000 ML 125 ML IV (20:54)
[2024-04-12 21:55] VITALS: PULSE 77; O2SAT 98
[2024-04-12 21:56] VITALS: BP 124/62; PULSE 77
[2024-04-12 21:57] VITALS: TEMP 37.2
[2024-04-12] MEDS: MORPHINE 10 MG/ML inj IM (22:28)
[2024-04-12] MEDS: hydrOXYzine pamoate 25 MG CAPSULE 100 MG PO (22:28)
[2024-04-12 23:49] VITALS: BP 130/67; PULSE 71; TEMP 36.6
[2024-04-13] VITALS (66 sets, daily range): BP systolic 85–129; BP diastolic 48–77; PULSE 64–105; RESP 15–16; TEMP 36.6–38.1; O2SAT 96–100
[2024-04-13] MEDS: LACTATED RINGERS 1000 ML 1,000 ML 125 ML IV (05:05)
[2024-04-13] MEDS: INSULIN ASPART 100 UNIT/ML SUBCUT ×3 (08:00→17:30)
[2024-04-13] MEDS: INSULIN GLARGINE,HUM.REC.ANLOG 100 UNIT/ML INSULN.PEN 9 UNIT SUBCUT ×2 (08:19→08:23)
--- NOTE | 2024-04-13 08:36 | PM.OBPNL ---
Subjective Time Seen by Provider: 08:15 Date Seen: 04/13/24 Narrative: Aliza is a 28-year-old woman at 39 weeks, 0 days gestation here for induction of labor for type 1 diabetes in . She had Cook catheter placed for cervical ripening overnight. She is currently on Pitocin for augmentation of labor at a dose of 6 milliunits a minute. She is not feeling any contractions. She has been managing her own insulin for her at home protocol thus far. She took 9 units of Lantus this morning, half of her usual dose. Objective Vital Signs: Last Vital Signs Temp 98.3 F 04/13/24 07:34 Pulse 70 04/13/24 07:29 BP 98/55 L 04/13/24 07:29 Pulse Ox 97 04/13/24 05:05 Comments: General: No acute distress, sitting in bed, ordering breakfast Sterile vaginal exam: 4 cm, 90%,-1 station, midposition, and soft. AROM for blood-tinged fluid tracing: Baseline 125, accelerations present, no decelerations, moderate variability. Contractions Contraction intensity: Mild Pitocin Rate (mU/min): 6 Assessment Assessment: early labor Station: -1 Amniotic Membrane Status: AROM Status: Category l Heart Rate Baseline: 125 Long-Term Variability: Moderate (6-25) Monitor Accelerations: Present Monitor Decelerations: None Tracing Comments: Category 1 tracing, reassuring GBS negative Labor Progress: Now with favorable cervix after cervical ripening Maternal Status: Type 1 diabetes, currently managing her own insulin. Half of usual long-acting insulin dose given this morning. Plan Plan: Increased Pitocin for augmentation. Continuous monitoring. Change to insulin drip protocol with active labor.
[2024-04-13] MEDS: ROPIVACAINE 0.2% 100 ml 100 ML 12 MG EPIDURAL (10:30)
[2024-04-13] MEDS: LIDOCAINE 2% (PF) 5 ML VIAL EPIDURAL (10:30)
--- NOTE | 2024-04-13 11:26 | PM.ANBPRC ---
[facility] Medical History (Updated 04/12/24 @ 17:12 by Sima Clemente MD) Abdominal pain ?R10.9 - Unspecified abdominal pain (ICD-10) Dyslipidemia ?E78.5 - Hyperlipidemia, unspecified (ICD-10) Migraine with aura ?G43.109 - Migraine with aura, not intractable, without status migrainosus (ICD-10) Surgical History No pertinent past surgical history ?Z78.9 - Other specified health status (ICD-10) Family History Paternal Grandmother Breast cancer, Onset Age: 60 Lung cancer DM type 1 (diabetes mellitus, type 1) Maternal Grandfather Esophageal cancer Grandmother Diabetes Aunt Diabetes DM type 1 (diabetes mellitus, type 1) Other Prostate cancer Uterine cancer Social History (Updated 03/29/24 @ 15:15 by Sima Clemente MD) 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: , 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, 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 smoking at parties Alcohol ingestion 1-4 drinks/week, no use in Does not use illicit drugs Exercises 4 times cardio and weights What is your current living situation?: I presently have a place to live Problems where you live: no known problems In the past 12 months, utilities in danger of being shut off: no In past 12 months, lack of transportation kept you from medical appts, meetings, work, or getting things needed for daily living: no In the past 12 mos, have been you worried that your food would run out before you had money to buy more?: never true In the past 12 mos, the food you bought just didn't last and you didn't have money to buy more?: never true Smoking Status: Never smoker Second hand tobacco smoke exposure: No How often do you have a drink containing alcohol: never How often do you have six or more drinks on one occasion: Never AUDIT-C Alcohol total score: 0 Non-prescribed substance use: denies use How often does anyone, including family, friends and others, physically hurt you: never How often does anyone, including family, friends and others, insult or talk down to you: never How often does anyone, including family, friends and others, threaten you with harm: never How often does anyone, including family, friends and others, scream or curse at you: never Little interest or pleasure in doing things: not at all Feeling down, depressed, or hopeless: not at all service: No Meds Home Medications and Allergies Home Medications ?Medication ?Instructions ?Recorded ?Confirmed ?Type insulin aspart U-100 100 unit/mL 1 sliding scale dose subcut 02/18/23 04/12/24 History (3 mL) subcutaneous pen (Novolog USEASDIRECTD FlexPen U-100 Insulin aspart) insulin glargine 100 unit/mL (3 12 unit subcut QDAY 02/18/23 04/12/24 History mL) subcutaneous pen (Lantus Solostar U-100 Insulin) aspirin 81 mg chewable tablet 81 mg PO QDAY 09/09/23 04/12/24 History docosahexaenoic acid 200 mg 200 mg PO DAILY 09/09/23 04/12/24 History capsule ( DHA) folic acid 800 mcg tablet 0.8 mg PO QDAY 09/09/23 04/12/24 History magnesium 200 mg tablet 200 mg PO QDAY 02/12/24 04/12/24 History Allergies Allergy/AdvReac Type Severity Reaction Status Date / Time dextromethorphan Allergy Mild Unknown Verified 04/12/24 17:11 Results Labs Labs: Laboratory Results - last 24 hr 04/12/24 20:23 WBC 11.79 H RBC 4.06 Hgb 12.6 Hct 37.0 MCV 91 MCH 31 MCHC 34 RDW Coeff of Ortega 13.5 Plt Count 190 Neut % (Auto) 78.0 H Lymph % (Auto) 12.0 L Simpson % (Auto) 6.9 Eos % (Auto) 2.6 Baso % (Auto) 0.2 Neut # (Auto) 9.20 H Lymph # (Auto) 1.40 Simpson # (Auto) 0.80 Eos # (Auto) 0.30 Baso # (Auto) 0.00 Abs Immat Gran (auto) 0.00 Imm/Tot Granulo (auto) 0.3 Blood Type B Positive Antibody Screen NEGATIVE Vital Signs Vital Signs: Last Vital Signs Temp 98.5 F 04/13/24 09:07 Pulse 75 04/13/24 11:24 BP 100/71 04/13/24 11:24 Pulse Ox 98 04/13/24 11:23 Weight: 78.653 kg Height: 170.18 cm Anesthesia Procedures Epidural Insertion Patient Location: OB Start Time: 10:25 Stop Time: 10:55 Start Date: 04/13/24 Stop Date: 04/13/24 Reason for Block: procedure for pain Patient Position: sitting (Epidural insertion assisted by CRYSTAL Vargas) Performed By: Tal Vallecillo Preanesthetic Checklist: IV checked, risks and benefits discussed, monitors and equipment checked, pre-op evaluation, timeout performed and anesthesia consent Prep: chlorhexidine gluconate Monitoring: blood pressure monitoring, continuous pulse oximetry and heart rate Approach: midline Vertebral Space: lumbar (1-5) Epidural Technique: SOSA saline Needle Type: Tuohy needle Injection Technique: continuous catheter Needle gauge: 17 Needle Length (cm): 10 cm Needle Insertion Depth (cm): 5 Catheter Gauge: 19 Catheter Type: multi-orifice Catheter at skin depth (cm): 12 Test Dose Result: negative and lidocaine 1.5% with epinephrine 1 to 200,000
[2024-04-13] MEDS: PHENYLEPHRINE 100 MCG/ML SYRINGE IVP ×2 (12:00→12:54)
[2024-04-13] MEDS: 5 % DEXTROSE/0.45% SOD CHLOR 1,000 ML 125 ML IV (12:33)
[2024-04-13] MEDS: LIDOCAINE 1 % PF 30 ML INJECTION (15:27)
--- NOTE | 2024-04-13 16:20 | W.PM.VAGDEL1 ---
Procedure Delivery date: 04/13/24 Procedure Done: Global Procedure Details: The patient is a 28 year-old G 3 P 0 woman admitted on 04/12/2024 at 38 Weeks, 6 Days gestation for induction of labor for indication of type 1 diabetes in .? Cervical exam on admission was 1 cm/50 % effaced/-3 station with membranes intact in vertex presentation.? heart rate demonstrated baseline 125 bpm with moderate variability, positive accelerations, none decelerations; a category 1 tracing.? She had Cook catheter for cervical ripening, followed by Pitocin and then AROM for augmentation of labor. AROM occurred at 8:30 a.m. with blood tinged fluid. ? Labor Analgesia:? Epidural ? Pitocin:? Yes ? Labor onset:? 10:00 a.m. ? Complete:? 2:27 p.m. ? Pushing:? 2:51 p.m. ? heart tones during second stage were reassuring. ? At 3:23 p.m. a viable female delivered in vertex OA presentation with restitution to LOT over intact perineum via spontaneous vaginal delivery.? Infant was placed on maternal abdomen.? Cord was clamped and cut after a greater than 60 seconds.? Nose and mouth were bulb suctioned.? weight pending.? 8 at 1 minute and 9 at 5 minutes.? Shoulder dystocia: No.? Nuchal cord: No. ? Placenta delivered spontaneously and complete at 3:27 p.m. with a 3 vessel cord. ? Mother and were stable after delivery. ? Lacerations:? Bilateral labial lacerations, 1 of which was bleeding rather heavily. Each of these was repaired with a running stitch of 3-0 Vicryl after infiltration with small amount of 1% lidocaine. There is a small first-degree laceration of the perineum which was addressed with 2 sutures of 3-0 Vicryl as well. Blood loss: 750 mL; this blood loss is a rough estimate due to fluid mixed with blood in the bag. There was bleeding from the right labial laceration without any uterine atony. Blood loss measurement type: EBL ? Sponge and needles counts are correct.
[2024-04-13] MEDS: IBUPROFEN 600 MG TABLET PO (17:45)
[2024-04-14] MEDS: IBUPROFEN 600 MG TABLET PO ×4 (01:10→20:46)
[2024-04-14 01:16] VITALS: BP 109/69; PULSE 71; RESP 16; O2SAT 98
[2024-04-14 05:00] VITALS: BP 108/67; PULSE 80; RESP 16; O2SAT 98
[2024-04-14 06:42] LABS: Hemoglobin* 10.7 gm/dL (12.0-16.0)
[2024-04-14 07:25] VITALS: BP 109/66; PULSE 73; RESP 16; TEMP 36.8; O2SAT 98
[2024-04-14 07:38] VITALS: TEMP 36.8
[2024-04-14] MEDS: DOCUSATE SODIUM 100 MG CAPSULE PO (07:39)
--- NOTE | 2024-04-14 07:55 | PM.OBPNVD1 ---
OB - PN:Subj Subjective Time Seen by Provider: 08:10 Date Seen: 04/14/24 Patient comments OB post-: no complaints status: doing well [place] feeding status: breast and bottle feeding Narrative: Aliza is a 28yo seen on PPD1 from [facility]]. is complicated by DM1, well controlled by Endocrinology. She was seen by Chadd Quiles for routine cares/exam this morning. Please see her note for complete details. She is doing well with no acute concerns, was considering early dismissal but has since decided to stay overnight. She has an established plan with her manager front office for insulin - where she will decrease Lantus to 9u QAM and 1:15 Novolog at meals. She has yet to take her insulin this morning. She utilizes a continuous glucose monitor, 103mg/dL at present. Encouraged her to initiate the above insulin regimen and diligent BG monitoring. Discussed signs/symptoms of hypoglycemia, where we will continue to monitor for this as well. Anticipate dismissal to home tomorrow. OB - PN: Obj Exam Physical Exam: Vital signs: Temp Pulse Resp BP Pulse Ox O2 Del Method 98.2 F 73 16 109/66 98 Room Air 04/14/24 07:38 04/14/24 07:25 04/14/24 07:25 04/14/24 07:25 04/14/24 07:25 04/14/24 07:25 OB - PN: Obj Data Labs Labs: Laboratory Results - last 24 hr 04/14/24 06:23 Hgb 10.7 L OB - PN: A/P Delivery Assessment and Plan (1) Type 1 diabetes mellitus during : Status: Acute
--- NOTE | 2024-04-14 08:04 | P.OBPN_ITS ---
OB - PN:Subj Subjective Date Seen: 04/14/24 Narrative: The patient feels well.? The pain is well controlled with current medications.? She has no new complaints.? Urinary output is adequate and she is voiding without difficulty.?She has noted her uterus is off to the right, as expected, w hen her bladder is not empty. Has a good appetite, is tolerating a general diet, is passing flatus, and has not had a bowel movement.? Has scant amount of rubra lochia.? She is ambulating well. She is and reports it is going well.? OB - PN: Obj Exam Physical Exam: Vital signs: Temp Pulse Resp BP Pulse Ox O2 Del Method 98.2 F 73 16 109/66 98 Room Air 04/14/24 07:38 04/14/24 07:25 04/14/24 07:25 04/14/24 07:25 04/14/24 07:25 04/14/24 07:25 Narrative: GENERAL APPEARANCE:? normal affect, alert, no distress MOOD:? appropriate ABDOMEN:? soft, non-tender the uterine fundus is At Umbilicus, off right and is appropriate for the stage of recovery. EXTREMITIES:? normal and mild edema : OB - PN: Obj Data Labs Labs: Laboratory Results - last 24 hr 04/14/24 06:23 Hgb 10.7 L OB - PN: A/P Delivery Assessment and Plan (1) Type 1 diabetes mellitus during : Status: Acute (2) care and examination of lactating mother: Status: Acute Plan Discharge home with baby either this evening or tomorrow morning. RN to notify me if discharging today. All discharge teaching reviewed. She does not need any RX if she discharges. Dr Ridley will discuss diabetes plan with patient.? Follow up in 2 weeks and 6 weeks.? , may see if needed? Hgb 10.7 ? Call for signs/symptoms of preeclampsia? For pain control of perineum, breast and pelvic pain, take 600 mg Ibuprofen every 6 hours as needed by mouth or 1000 mg acetaminophen (Tylenol) every 6 hours by mouth as needed. You can alternate these so you are taking something every 3 hours as needed. A heating pad can also be used for your abdomen or breasts.? Plan day: 1 Plan: routine care
[2024-04-14] MEDS: INSULIN ASPART 100 UNIT/ML SUBCUT ×3 (10:20→21:58)
--- NOTE | 2024-04-14 10:21 | PM.ANPOST ---
Post Anesthesia Note Post Anesthesia Note Patient seen: Inpatient Respiratory Status: adequate Cardiovascular Status: adequate Mental Status: baseline Pain: adequate Temp: baseline Anesthetic awareness: N/A Complications: none Follow care: none
[2024-04-14 12:36] VITALS: BP 106/72; PULSE 84; RESP 16; TEMP 36.8; O2SAT 98
[2024-04-14 20:45] VITALS: BP 126/77; PULSE 79; RESP 20; TEMP 36.8; O2SAT 98
[2024-04-15] MEDS: IBUPROFEN 600 MG TABLET PO ×2 (04:06→09:55)
[2024-04-15 04:29] VITALS: BP 111/73; PULSE 74; RESP 16; TEMP 37.2; O2SAT 98
--- NOTE | 2024-04-15 07:22 | PM.OBDSVD1 ---
DS: Providers Provider Date Seen: 04/15/24 Date of admission: 04/12/24 16:03 Primary care physician: Madison Lozada MD Admitting Clinician: Sima Clemente MD Attending Physician on discharge: Higinio Solo MD Date of Discharge: 04/15/24 DS: Diagnosis Discharge Diagnosis (1) care and examination of lactating mother: Status: Acute (2) Type 1 diabetes mellitus during : Status: Acute (3) Spontaneous vaginal delivery: Status: Acute Exam Narrative: Exam Narrative: GENERAL APPEARANCE:? normal affect, alert, no distress MOOD:? appropriate CHEST:? clear to auscultation HEART:? regular rate and rhythm ABDOMEN:? soft, non-tender the uterine fundus is At Umbilicus, Midline and is appropriate for the stage of recovery. PERINEUM:? mild edema of the perineum, there is a first degree Perineal Laceration,? that is healing well. EXTREMITIES:? normal and no edema Const: Vital Signs, click to edit/add: Vital Signs - 24 hr 04/14/24 07:25 04/14/24 07:38 04/14/24 12:36 Temperature 98.2 F 98.2 F 98.2 F Pulse Rate [Pulse Oximeter] 73 84 Respiratory Rate 16 16 Blood Pressure [Ri ght Arm] 109/66 106/72 Pulse Oximetry 98 98 Oxygen Delivery Me thod Room Air Room Air 04/14/24 20:45 04/15/24 04:29 Temperature 98.2 F 98.9 F Pulse Rate [Pulse Oximeter] 79 74 Respiratory Rate 20 16 Blood Pressure [Ri ght Arm] 126/77 111/73 Pulse Oximetry 98 98 Oxygen Delivery Me thod Room Air Room Air OB - DS: Summary Hospital Course Hospital Course: The patient is a 28 year old G 3 P 1021 at 39 2/7 weeks gestation that was admitted to the Center on 04/12/24 for IOL. She had an uncomplicated vaginal delivery. She delivered a viable female . She is breast feeding. the patient has done well. Patient has made insulin changes as recommended by endocrinology, Lantus 9 units in the morning and NovoLog correction 1:15. Blood sugars have remained within target and no episodes of hypoglycemia. Peripartum Data Infant delivery method: Vaginal Laceration description: Periurethral - 1st Degree complications: none Infant Gender: Female Status at Discharge Functional status at discharge: independent ambulation Overall status at discharge: patient is progressing back to baseline Time Spent with Patient Time attestation: Total time spent providing and/or coordinating discharge services: Time spent: Less than 30 minutes Discharge Plan Discharge Disposition: Home, Self-Care Date of Admission: 04/12/24 16:03 Attending Provider on Discharge: Priti Solo Primary Care Provider: Madison Lozada Condition: Stable Anticipated Discharge Date/Time: 04/15/24 12:00 Discharge Medications: New acetaminophen 500 mg Tablet 1,000 mg PO Q6H PRNQty: 20 0RF ibuprofen 600 mg Tablet 600 mg PO Q6H PRNQty: 30 0RF Continued insulin glargine [Lantus Solostar U-100 Insulin] 100 unit/mL (3 mL) insulin pen 12 unit subcut QDAY insulin aspart U-100 [Novolog FlexPen U-100 Insulin] 100 unit/mL (3 mL) insulin pen 1 sliding scale dose subcut USEASDIRECTD DHA 200 mg capsule 200 mg PO DAILY folic acid 800 mcg tablet 0.8 mg PO QDAY polyethylene glycol 3350 [Miralax] 17 gram/dose powder 17 g PO QDAY Qty: 510 2RF magnesium 200 mg tablet 200 mg PO QDAY alcohol swabs Pads, Medicated See Rx Instructions topical .COMPLEX Qty: 200 11RF Rx Instructions: For topical use prior to injections. (DME) Diabetic Test Strips Misc See Rx Instructions .Route Qty: 100 11RF Rx Instructions: four times a day (DME) lancets 33 gauge misc See Rx Instructions .Route Qty: 100 0RF Rx Instructions: As directed (DME) pen needle, diabetic 32 gauge x 5/32 needle See Rx Instructions .Route Qty: 100 0RF Rx Instructions: As directed Discontinued aspirin 81 mg tablet,chewable 81 mg PO QDAY Discharge Orders: Discharge Order (Routine); Ordered 04/15/24 Ordered By: Priti Solo Patient Education: OB Vaginal/Breast Feeding Additional Instructions: Follow up in clinic in 2 weeks for mood check. Follow up in clinic in 6 weeks for regular follow up. Activity Level: Activity as Tolerated Activity Detail: Nothing vaginally for 6 weeks Discharge Diet: Diabetic Follow Up Appointments: Madison Lozada MD [Primary Care Provider] - Forms: MyHealth Info Instructions
[2024-04-15 07:28] LABS: Rapid Plasma Reagin (RPR) Non Reactive (Non Reactive)
[2024-04-15] MEDS: INSULIN GLARGINE,HUM.REC.ANLOG 100 UNIT/ML INSULN.PEN 9 UNIT SUBCUT (08:05)
[2024-04-15] MEDS: INSULIN ASPART 100 UNIT/ML SUBCUT (09:38)
[2024-04-15 09:49] VITALS: BP 114/72; PULSE 72; RESP 18; TEMP 36.4; O2SAT 98
[2024-04-15] MEDS: DOCUSATE SODIUM 100 MG CAPSULE PO (09:55)
== END 2024-04-15 13:13 | disposition home or self-care (01) | DRG 807 ==
PROVIDERS: Obstetrics & Gynecology; Admitting Provider Obstetrics & Gynecology; PCP Family Medicine; Visit Provider Obstetrics & Gynecology
DX: O24.02 Pre-existing type 1 diabetes mellitus, in childbirth (principal); Z37.0 Single live birth; E10.8 Type 1 diabetes mellitus with unspecified complications; O70.0 First degree perineal laceration during delivery; Z3A.38 38 weeks gestation of pregnancy; Z79.4 Long term (current) use of insulin
CPT/HCPCS: 01967; 36415; 59200; 82962; 85018; 85025; 86592; 86850; 86900; 86901; 88307; A9270; C1726; J1815; J2001; J2270; J2371; J2795; J7120; S5010

== ENCOUNTER 2025-07-14 09:18 | Outpatient (CLI) | payer OTHER, SELFPAY ==
[2025-07-16 01:15] LABS: HPV Source Cervical
[2025-07-20 12:58] LABS: Pap Test Digital Imaging Done
== END 2025-07-14 09:19 | disposition home or self-care (01) ==
PROVIDERS: PCP Family Medicine; Visit Provider Obstetrics & Gynecology
DX: Z12.4 Encounter for screening for malignant neoplasm of cervix (principal)
CPT/HCPCS: 87624; 87625; 88141; 88142; 88175